=== PATIENT | female | born 1955 | race African-American/Black ===

== ENCOUNTER 2019-03-26 07:13 | Emergency (ER) | payer BC, OTHER ==
[~2019-03-26] VITALS: Ht 167.6 cm; Wt 108.0 kg
[~2019-03-26 07:13] MED LIST: AVAPRO300 MG PO; BACTROBAN NASAL1 GM NASAL; COLACE100 MG PO; DILTIAZEM 24HR360 MG PO; HIBICLENS120 ML TOP; HYDROCHLOROTHIA25 M2 PO; IRON325 PO; MINOCIN100 MG PO; VICODIN 5-5001 EACH PO; VITAMINC500 PO
[2019-03-26] MEDS ORDERED: TYLENOL EXTRA500 MG PO (09:06)
[2019-03-26 09:19] VITALS: BP 162/88
== END 2019-03-26 09:23 | disposition home or self-care (01) ==
LOC: ER 07:13
DX: S00.83XA Contusion of other part of head, initial encounter (principal); I10 Essential (primary) hypertension; Z98.890 Other specified postprocedural states; W10.9XXA Fall (on) (from) unspecified stairs and steps, initial encounter; Y92.89 Other specified places as the place of occurrence of the external cause; Y93.89 Activity, other specified; Y99.8 Other external cause status